=== PATIENT | female | born 1945 | race Hispanic/Latino ===

== ENCOUNTER 2023-05-28 13:10 | Outpatient (CLI) | payer OTHER | END 2023-05-28 13:11 | disposition home or self-care (01) | LOC: CSHMAMMO 13:10 | PROVIDERS: ATTEND Neurological Surgery | DX: S22.000D Wedge compression fracture of unspecified thoracic vertebra, subsequent encounter for fracture with routine healing (principal); M81.0 Age-related osteoporosis without current pathological fracture | CPT/HCPCS: 77080 ==